=== PATIENT | male | born 1990 | race Caucasian/White ===

== ENCOUNTER 2022-06-01 09:20 | Emergency (ER) | payer BC, OTHER ==
[~2022-06-01] VITALS: Ht 172.7 cm; Wt 56.9 kg
[2022-06-01 14:12] VITALS: BP 111/66
== END 2022-06-01 14:24 | disposition home or self-care (01) ==
LOC: M ED 09:20
DX: S63.602A Unspecified sprain of left thumb, initial encounter (principal); X50.3XXA Overexertion from repetitive movements, initial encounter; F17.200 Nicotine dependence, unspecified, uncomplicated; F12.10 Cannabis abuse, uncomplicated; F10.10 Alcohol abuse, uncomplicated; Y99.0 Civilian activity done for income or pay

== ENCOUNTER 2023-12-06 12:36 | Day surgery (SDC) | payer SELFPAY ==
[~2023-12-06] VITALS: Ht 172.7 cm; Wt 55.4 kg
[2023-12-06] MEDS ORDERED: TYLE650T38 PO (12:59)
[2023-12-06] MEDS ORDERED: MIDAZOLAM INJ 2MG/2ML VIAL As Ordered ONE (13:10)
[2023-12-06] MEDS ORDERED: propofoL 200 MG/20 ML VIAL As Ordered ONE (13:10)
[2023-12-06] MEDS ORDERED: ACETAMINOPHEN 1000MG 100ML IV BAG As Ordered ONE (13:10)
[2023-12-06] MEDS ORDERED: LIDOCAINE 2% 100MG/5ML SDV (FOR ANES.) As Ordered ONE (13:10)
[2023-12-06] MEDS ORDERED: fentaNYL 100 MCG/2 ML INJECTION As Ordered ONE (13:10)
[2023-12-06] MEDS: LR 1,000 ML IV SCH (13:26)
[2023-12-06] MEDS ORDERED: LIDOCAINE 1% SDV 5ML VIAL PN ONE (13:45)
[2023-12-06] MEDS ORDERED: dexAMETHasone 10MG/1ML VIAL PRES.FREE PN ONE (13:45)
[2023-12-06] MEDS: ceFAZolin SOD 2 GM in IV 1 EA IV ONE (14:35)
[2023-12-06] MEDS ORDERED: KETOROLAC 60MG 2ML VIAL As Ordered ONE (14:50)
[2023-12-06] MEDS ORDERED: ONDANSETRON 4MG 2ML VIAL As Ordered ONE (14:50)
[2023-12-06] MEDS: BACITRACIN OINTMENT 30GM TUBE As Ordered ONE (15:26)
[2023-12-06] MEDS ORDERED: ONDANSETRON 4MG 2ML VIAL IV PRN (15:45)
[2023-12-06] MEDS ORDERED: fentaNYL 100 MCG/2 ML INJECTION IV PRN (15:45)
[2023-12-06] MEDS ORDERED: PERCOCET PO (15:52)
[2023-12-06] MEDS: oxyCODONE 5MG TAB PO PRN (16:21)
[2023-12-06 16:45] VITALS: BP 135/89; TEMP 98.3; O2SAT 98
== END 2023-12-06 17:08 | disposition home or self-care (01) ==
LOC: M SDC 12:36
PROVIDERS: ATTEND Orthopaedic Surgery Hand Surgery
DX: S62.396A Other fracture of fifth metacarpal bone, right hand, initial encounter for closed fracture (principal); S62.141A Displaced fracture of body of hamate [unciform] bone, right wrist, initial encounter for closed fracture; W22.8XXA Striking against or struck by other objects, initial encounter; Y92.89 Other specified places as the place of occurrence of the external cause; Y93.9 Activity, unspecified; F17.218 Nicotine dependence, cigarettes, with other nicotine-induced disorders; F12.10 Cannabis abuse, uncomplicated; F41.9 Anxiety disorder, unspecified; F32.A Depression, unspecified; J30.2 Other seasonal allergic rhinitis
CPT/HCPCS: 26686; 76000; C1713; J0131; J0665; J0690; J1100; J1885; J2250; J2405; J3010